=== PATIENT | male | born 1990 | race Caucasian/White ===

== ENCOUNTER → 2018-06-28 | Outpatient (CLI) | payer BC, OTHER ==
--- NOTE | 2018-06-28 16:05 | REP ---
ULTRASONOGRAPHY OF THE RIGHT NECK OVER A PALPABLE ABNORMALITY: PRIORS: None. Multiple sonographic images over a palpable abnormality in the right side of the neck shows 1.5 x 0.7 x 1.3 cm sized hypoechoic structure with increased Doppler flow with two smaller similar structures. Posterior on the right there is a 1.0 x 0.7 x 1 cm size hypoechoic structure. Left side of the neck was scanned for comparison showing smaller solid nodules. IMPRESSION: Findings suggest possible reactive lymph nodes on the right side of the neck. Contrast enhanced CT is recommended since it is the goal standard for imaging neck masses. Electronically Signed by Jose Oliver DO 06/28/2018 04:55 P
== END ==
LOC: M RAD 15:01
PROVIDERS: ATTEND Physician Assistant Medical
DX: R22.1 Localized swelling, mass and lump, neck (principal)

== ENCOUNTER → 2018-07-01 | Outpatient (REF) | payer OTHER | LOC: M SFHCPLAZ 12:17 | PROVIDERS: ATTEND Dermatology | DX: R21 Rash and other nonspecific skin eruption (principal) ==

== ENCOUNTER → 2018-07-01 | Outpatient (REF) | payer OTHER | LOC: M SFHCPLAZ 11:46 | PROVIDERS: ATTEND Dermatology | DX: L94.2 Calcinosis cutis (principal); L92.8 Other granulomatous disorders of the skin and subcutaneous tissue; L72.0 Epidermal cyst ==

== ENCOUNTER → 2022-09-23 | Outpatient (CLI) | payer OTHER ==
[2022-09-23 10:18] LABS: HEMOGLOBIN A1c 5.1 % (4.0-6.0)
[2022-09-23 10:27] LABS: HEMATOCRIT 48.4 % (42.0-52.0); HEMOGLOBIN 16.7 g/dl (13.5-17.5); MEAN CORPUSCULAR HEMOGLOBIN 28.4 pg (27.0-33.0); MEAN CORPUSCULAR HGB CONC 34.5 g/dl (32.0-36.5); MEAN CORPUSCULAR VOLUME 82.3 fl (80.0-96.0); PLATELET COUNT, AUTOMATED 224 10^3/uL (150-450); RED BLOOD COUNT 5.88 10^6/uL (4.30-6.10); WHITE BLOOD COUNT 5.8 10^3/uL (4.0-10.0)
[2022-09-23 10:29] LABS: ALKALINE PHOSPHATASE 85 U/L (46-116); ALT/SGPT 25 U/L (7.0-40); AST/SGOT 21 U/L (<34); BILIRUBIN,TOTAL 0.7 MG/DL (0.3-1.2); BLOOD UREA NITROGEN 12 MG/DL (9-23); CALCIUM LEVEL 9.2 MG/DL (8.5-10.1); CARBON DIOXIDE LEVEL 30 MMOL/L (20-31); CHLORIDE LEVEL 105 MMOL/L (98-107); CHOLESTEROL LEVEL 171 MG/DL (<200); CHOLESTEROL RISK RATIO 4.91 (<5); CREATININE FOR GFR 0.96 MG/DL (0.70-1.30); GLOMERULAR FILTRATION RATE > 60.0 (>60); GLUCOSE, FASTING 87 MG/DL (60-100); HDL CHOLESTEROL 34.8 MG/DL (>40); NON-HDL-C 136.2 MG/DL; POTASSIUM SERUM 4.7 MMOL/L (3.5-5.1); SODIUM LEVEL 138 MMOL/L (136-145); TOTAL PROTEIN 6.7 G/DL (5.7-8.2); TRIGLYCERIDES LEVEL 81 MG/DL (<150)
[2022-09-23 10:31] LABS: ATYPICAL LYMPH 7 % (0-5); BASOPHILS 4 % (0-1); EOSINOPHILS 2 % (0-3); LYMPHOCYTES 22 % (16-44); MONOCYTES 10 % (0-5); NEUTROPHILS 53 % (28-66); PLASMA CELL 1 % (0-0); THYROID STIMULATING HORMONE 2.338 uIU/ML (0.55-4.78); TOTAL 25(OH) VITAMIN D 22.4 NG/ML (20.0-100.0)
[2022-09-23 10:32] LABS: TESTOSTERONE 844 NG/DL (241-827)
[2022-09-23 10:33] LABS: PLATELET ESTIMATE NORMAL (NORMAL)
== END ==
LOC: M RAD 09:15
PROVIDERS: ATTEND Family Medicine
DX: D64.9 Anemia, unspecified (principal)

== ENCOUNTER → 2023-02-14 | Outpatient (CLI) | payer BC, OTHER | LOC: M CARPUL 09:53 | PROVIDERS: ATTEND Internal Medicine Cardiovascular Disease | DX: R07.9 Chest pain, unspecified (principal) ==

== ENCOUNTER → 2023-12-25 | Outpatient (CLI) | payer BC | LOC: M RAD 08:58 | PROVIDERS: ATTEND Internal Medicine Endocrinology, Diabetes & Metabolism | DX: D29.31 Benign neoplasm of right epididymis (principal) ==